=== PATIENT | female | born 1975 | race Caucasian/White ===

== ENCOUNTER → 2016-08-11 | Outpatient (CLI) | payer OTHER ==
--- NOTE | 2016-08-11 15:43 | REP ---
Right ankle series: Four views. History: Sprain. Findings: There is anterolateral swelling. Ankle mortise is intact. No fracture or subluxation is seen. Impression: Swelling noted. No fracture seen. Signed by Cayetano Penny MD 08/11/2016 04:45 P
== END ==
LOC: M WUC 13:44
PROVIDERS: ATTEND Physician Assistant
DX: S93.421A Sprain of deltoid ligament of right ankle, initial encounter (principal); W18.30XA Fall on same level, unspecified, initial encounter; Y92.009 Unspecified place in unspecified non-institutional (private) residence as the place of occurrence of the external cause

== ENCOUNTER → 2018-08-11 | Outpatient (CLI) | payer BC, OTHER ==
--- NOTE | 2018-08-11 17:14 | REP ---
Clinical: Pain. Technique: AP, lateral, bilateral oblique views. Findings: The carpal bones, surrounding osseous structures, soft tissues, and joint spaces are normal. There is no evidence for acute fracture or dislocation. No subcutaneous emphysema or radiodense foreign body. Impression: Normal wrist series. No acute fracture or dislocation Electronically Signed by Sonu Garay MD 08/11/2018 05:06 P
--- NOTE | 2018-08-11 17:15 | REP ---
Clinical: Pain Technique: AP, lateral, bilateral oblique views right hand . Findings: The osseous structures and joint spaces are intact and normal. There is no evidence for acute fracture or dislocation. Surrounding soft tissues are unremarkable. No subcutaneous emphysema or radiodense foreign body. Impression: Normal-appearing right hand series. No acute fracture or dislocation. Electronically Signed by Sonu Garay MD 08/11/2018 05:06 P
== END ==
LOC: M ADAMS 15:09
PROVIDERS: ATTEND Physician Assistant
DX: R20.2 Paresthesia of skin (principal); M25.541 Pain in joints of right hand; M25.531 Pain in right wrist

== ENCOUNTER → 2018-08-11 | Outpatient (REF) | payer OTHER ==
[2018-08-11 20:02] LABS: HEMOGLOBIN 14.3 g/dl (12.0-15.5); MEAN CORPUSCULAR HEMOGLOBIN 31.6 pg (27.0-33.0); MEAN CORPUSCULAR HGB CONC 32.5 g/dl (32.0-36.5); MEAN CORPUSCULAR VOLUME 97.1 fl (80.0-96.0); PLATELET COUNT, AUTOMATED 246 10^3/uL (150-450); RED BLOOD COUNT 4.53 10^6/uL (4.00-5.40); WHITE BLOOD COUNT 9.7 10^3/uL (4.0-10.0)
[2018-08-11 20:23] LABS: ERYTHROCYTE SEDIMENTATION RATE 4 mm/hr (0-20)
[2018-08-11 20:25] LABS: BLOOD UREA NITROGEN 12 MG/DL (7-18); C REACTIVE PROTEIN QUANTITATIV 0.35 MG/DL (0.00-0.30); CALCIUM LEVEL 9.2 MG/DL (8.5-10.1); CARBON DIOXIDE LEVEL 26 MEQ/L (21-32); CHLORIDE LEVEL 102 MEQ/L (98-107); CREATININE FOR GFR 0.54 MG/DL (0.55-1.30); FREE T4 0.94 NG/DL (0.76-1.46); GLOMERULAR FILTRATION RATE > 60.0 (>58); GLUCOSE, FASTING 66 MG/DL (70-100); POTASSIUM SERUM 4.3 MEQ/L (3.5-5.1); RHEUMATOID FACTOR QUANT < 10.0 IU/ML (<15.0); SODIUM LEVEL 136 MEQ/L (136-145); TOTAL 25(OH) VITAMIN D 14.6 NG/ML (30.0-100.0); VITAMIN B12 LEVEL 571 PG/ML
[2018-08-13 16:13] LABS: Lyme Disease IgG/IgM Antibodie <0.91 ISR (0.00-0.90); Lyme Disease IgM Ab Quantitati <0.80 index (0.00-0.79)
[2018-08-14 00:06] LABS: ANA (HEP2) Negative (.)
== END ==
LOC: M SFHCADAM 14:58
PROVIDERS: ATTEND Physician Assistant
DX: R20.2 Paresthesia of skin (principal); M25.542 Pain in joints of left hand; M25.541 Pain in joints of right hand; M25.531 Pain in right wrist; M25.532 Pain in left wrist; M79.672 Pain in left foot; M79.671 Pain in right foot

== ENCOUNTER 2019-07-18 07:10 | Emergency (ER) | payer BC, OTHER ==
[~2019-07-18] VITALS: Ht 152.4 cm; Wt 57.4 kg
[2019-07-18] MEDS ORDERED: PRED10TA2 (07:18)
[2019-07-18] MEDS ORDERED: BENA25CA4 PO (07:48)
[2019-07-18] MEDS ORDERED: diphenhydrAMINE INJ 50MG/ML VIAL (J1200) IV STA (08:08)
[2019-07-18] MEDS ORDERED: methylPREDNISolone INJ 125 MG/2 ML VIAL (J2930) IV ONE (08:15)
[2019-07-18] MEDS ORDERED: FAMOTIDINE INJ 20MG/2ML VIAL (S0028) IVP ONE (08:15)
[2019-07-18 08:36] LABS: BASO % 0.1 % (0.0-1.0); HEMATOCRIT 44.5 % (36.0-47.0); HEMOGLOBIN 14.5 g/dl (12.0-15.5); LYMPH # 1.1 10^3/uL (1.5-5.0); LYMPH % 7.2 % (24.0-44.0); MEAN CORPUSCULAR HEMOGLOBIN 31.5 pg (27.0-33.0); MEAN CORPUSCULAR HGB CONC 32.6 g/dl (32.0-36.5); MEAN CORPUSCULAR VOLUME 96.5 fl (80.0-96.0); MONO # 0.3 10^3/uL (0.0-0.8); MONO % 1.8 % (0.0-5.0); NEUTROPHILS # 13.4 10^3/uL (1.5-8.5); NEUTROPHILS % 90.2 % (36.0-66.0); PLATELET COUNT, AUTOMATED 302 10^3/uL (150-450); RED BLOOD COUNT 4.61 10^6/uL (4.00-5.40); WHITE BLOOD COUNT 14.9 10^3/uL (4.0-10.0)
[2019-07-18 08:46] LABS: BLOOD UREA NITROGEN 11 MG/DL (7-18); C REACTIVE PROTEIN QUANTITATIV < 0.30 MG/DL (0.00-0.30); CALCIUM LEVEL 9.1 MG/DL (8.5-10.1); CARBON DIOXIDE LEVEL 27 MEQ/L (21-32); CHLORIDE LEVEL 106 MEQ/L (98-107); GLOMERULAR FILTRATION RATE > 60.0 (>58); GLUCOSE, FASTING 156 MG/DL (70-100); POTASSIUM SERUM 4.1 MEQ/L (3.5-5.1); SODIUM LEVEL 139 MEQ/L (136-145)
[2019-07-18 08:50] LABS: HCG, SERUM QUALITATIVE NEGATIVE (NEGATIVE)
[2019-07-18] MEDS ORDERED: PRED20TA PO (10:14)
[2019-07-18] MEDS ORDERED: ALLE180T33 PO (10:14)
[2019-07-18] MEDS ORDERED: ALL10TAB29 PO (10:14)
[2019-07-18] MEDS ORDERED: HYDR-3363 PO (10:14)
[2019-07-18 10:42] VITALS: BP 122/78
[2019-07-18] MEDS ORDERED: PEPC1TAB5 PO (17:01)
[2019-07-19] MEDS ORDERED: ALLE180T33 PO (23:06)
[2019-07-19] MEDS ORDERED: PRED20TA PO (23:06)
[2019-07-19] MEDS ORDERED: HYDR-3363 PO (23:06)
[2019-07-19] MEDS ORDERED: BENA25CA4 PO (23:06)
[2019-07-19] MEDS ORDERED: PEPC1TAB5 PO (23:06)
[2019-07-19] MEDS ORDERED: CETI-14 PO (23:06)
== END 2019-07-18 10:43 | disposition home or self-care (01) ==
LOC: M ED 07:10
DX: T78.40XA Allergy, unspecified, initial encounter (principal); R21 Rash and other nonspecific skin eruption; F17.218 Nicotine dependence, cigarettes, with other nicotine-induced disorders
CPT/HCPCS: 80048; 84703; 85025; 86140; 96374; 96375; 99283; J1200; J2930

== ENCOUNTER 2019-07-18 14:35 | Emergency (ER) | payer BC, OTHER ==
[~2019-07-18] VITALS: Ht 152.4 cm; Wt 54.5 kg
[~2019-07-18 14:35] MED LIST: ALL10TAB29 PO; ALLE180T33 PO; BENA25CA4 PO; HYDR-3363 PO; PRED10TA2; PRED20TA PO
[2019-07-18] MEDS ORDERED: diphenhydrAMINE INJ 50MG/ML VIAL (J1200) IV ONE (16:30)
[2019-07-18] MEDS ORDERED: PEPC1TAB5 PO (17:01)
[2019-07-18 17:31] VITALS: BP 114/62
[2019-07-19] MEDS ORDERED: PEPC1TAB5 PO (23:06)
[2019-07-19] MEDS ORDERED: PRED20TA PO (23:06)
[2019-07-19] MEDS ORDERED: CETI-14 PO (23:06)
[2019-07-19] MEDS ORDERED: ALLE180T33 PO (23:06)
[2019-07-19] MEDS ORDERED: BENA25CA4 PO (23:06)
[2019-07-19] MEDS ORDERED: HYDR-3363 PO (23:06)
== END 2019-07-18 17:32 | disposition home or self-care (01) ==
LOC: M ED 14:35
DX: L29.9 Pruritus, unspecified (principal); L50.9 Urticaria, unspecified; F17.210 Nicotine dependence, cigarettes, uncomplicated; Z79.899 Other long term (current) drug therapy
CPT/HCPCS: 96374; 99283; J1200

== ENCOUNTER 2019-07-19 20:29 | Inpatient (IN) | payer BC, OTHER ==
[~2019-07-19] VITALS: Ht 152.4 cm; Wt 60.0 kg
[~2019-07-19 20:29] MED LIST changes: +PEPC1TAB5 PO
[2019-07-19] MEDS ORDERED: NS 1,000 ML IV ONE (22:15)
[2019-07-19] MEDS ORDERED: ALLE180T33 PO (23:06)
[2019-07-19] MEDS ORDERED: PEPC1TAB5 PO (23:06)
[2019-07-19] MEDS ORDERED: CETI-14 PO (23:06)
[2019-07-19] MEDS ORDERED: PRED20TA PO (23:06)
[2019-07-19] MEDS ORDERED: BENA25CA4 PO (23:06)
[2019-07-19] MEDS ORDERED: HYDR-3363 PO (23:06)
[2019-07-19 23:11] LABS: HEMATOCRIT 44.3 % (36.0-47.0); HEMOGLOBIN 14.1 g/dl (12.0-15.5); MEAN CORPUSCULAR HEMOGLOBIN 31.3 pg (27.0-33.0); MEAN CORPUSCULAR HGB CONC 31.8 g/dl (32.0-36.5); MEAN CORPUSCULAR VOLUME 98.2 fl (80.0-96.0); PLATELET COUNT, AUTOMATED 254 10^3/uL (150-450); RED BLOOD COUNT 4.51 10^6/uL (4.00-5.40)
[2019-07-19 23:13] LABS: WHITE BLOOD COUNT 13.8 10^3/uL (4.0-10.0)
--- NOTE | 2019-07-19 23:20 | HPEPDOC ---
[facility] Medical History & Physical Date of Admission Jul 19, 2019 Date of Service: Jul 19, 2019 Primary Care Physician: RYLAND PHOENIX PA-C Attending Physician: RAMÓN WATSON MD History and Physical CHIEF COMPLAINT: Itching and hives HISTORY OF PRESENT ILLNESS: is a 44-year-old female with no significant past medical history who presented to the emergency department with chief complaints of persistent pruritus and urticaria. 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 She initially had pruritus of her neck with urticaria that subsequently spread to both arms. She then presented to urgent care and was given Solu-Medrol before going home. The next morning she awoke with her "entire body" covered with hives and immediately presented to the emergency department at 6:30 AM. She was treated again with Solu-Medrol and IV Benadryl before being sent home with Clara, Zyrtec, and hydroxyzine. After a mild improvement, her symptoms became more intense and she returned to the ED around 2:30 PM. At this time, she was given another IV dose of Benadryl and discharged to continue with the home medications she received on her earlier presentation. She woke up this morning without any symptoms and had no issues until around 7 PM when she begin to experience lip swelling with neck urticaria and pruritus. She feels as though hydroxyzine helps with the pruritus in that exposure to warm water/showers seem to exacerbate her symptoms. The only time she had similar symptoms prior, was "many years ago" when she had bilateral hand pruritus after sleeping in a hotel bed. When she presented to the ED this evening, in addition to the lip swelling and neck symptoms, she endorsed hoarseness and soreness of her anterior chest when pressure is applied. At the time of examination, though, she feels her symptoms have moderately improved since presentation. Labs in the ED showed leukocytosis with an elevation of atypical lymphocytes, and no significant abnormalities on CMP. Patient denies any known drug allergies. She does not take any outpatient medications on a regular basis and denies taking anything recently other than what she's been given since Wednesday. She denies any recent extensive travel or significant changes in her diet. She denies using any new soaps, shampoos, deodorants, detergents, perfumes, etc. She does have 4 dogs at home. She has been exposed recently to a granddaughter with a cold and a grandson with RSV. In terms of recent illnesses, she reports suffering bronchitis around New Year's. REVIEW OF SYSTEMS: CONSTITUTIONAL: Denies fever, chills, night sweats, or recent unintentional change in weight HEENT: Endorses hoarseness, pruritus and urticaria of neck, and lip swelling that has improved since presentation; denies rhinorrhea or sore throat CARDIOVASCULAR: Endorses chest pain with applied pressure, but none without; as well as palpitations when taking prednisone. RESPIRATORY: Denies shortness of breath, pleuritic chest pain, or cough. GASTROINTESTINAL: Denies abdominal pain, feeling nauseated, vomiting, constipation, or diarrhea. GENITOURINARY: Denies dysuria or hematuria. SKIN: Endorses pruritus and urticaria of neck, b/l UE & LE, and abdomen over pa st 2 days. MUSCULOSKELETAL: Denies any muscle pain or joint pain. NEUROLOGICAL: Denies headache, dizziness, lightheadedness, or syncope PAST MEDICAL/SURGICAL HISTORY: No significant past medical history. Tubal ligation, 2006. SOCIAL HISTORY: , mother of 5 children with 2 grandchildren. She has 4 pet dogs at home. 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 She smokes roughly 1/2 ppd of cigarettes and has done so for the past 24 years. She drinks out. Call socially, averaging about 2-3 drinks per month. She denies any current or former illegal drug use. FAMILY HISTORY: Father lung cancer Breast cancer, diabetes mellitus 2, and unspecified heart disease are present throughout her family. ALLERGIES: Please see below. HOME MEDICATIONS: Please see below. PHYSICAL EXAMINATION: VITAL SIGNS: Temperature 98.3, pulse, 64, respiratory rate 14, blood pressure 147/91, pulse oximetry, 99 % on room air. GENERAL APPEARANCE: Pleasant female lying in bed in no acute distress. Alert and oriented 3. HEENT: Normocephalic, atraumatic. Anicteric, noninjected sclerae. No lip angioedema is appreciated. No pharyngeal erythema or exudate. Mucous membranes appear to be somewhat dry. There are scattered circumferential erythematous macules roughly 0.5 cm in diameter over the posterior aspect of the neck. CARDIOVASCULAR: Bradycardic rate and regular rhythm. S1, S2 auscultated. No murmurs or rubs are appreciated. LUNGS: Clear to auscultation bilaterally with no wheezes, crackles or rhonchi appreciated. Breathing on room air. Speaking in full sentences. No accessory muscle use. CHEST: Moderate erythema on the superior aspect of the chest that elicits mild pain when palpated, but blanches with pressure. ABDOMEN: Soft, nontender, nondistended. There is an approximate 1 cm long, erythematous macule on the left lateral aspect of the umbilicus. Normoactive bowel sounds present. EXTREMITIES: Scattered areas of erythematous macules roughly 0.5 cm in diameter over her anterior forearms bilaterally. There is no active bleeding, excoriation, induration, or discharge of the forearms. No lower extremity edema, clubbing or cyanosis. 2+ radial and posterior tibial pulses bilaterally. NEUROLOGICAL: Awake, alert and oriented 3. No focal neurological deficits appreciated. Responding properly to questions or commands. PSYCHIATRIC: Mood and affect appear appropriate LABORATORY DATA: Please see below. IMAGING: None MICROBIOLOGY: Please see below. ASSESSMENT & PLAN: This is a 44-year-old female who presents with 3 days of persistent pruritus and urticaria despite being seen 3 previous times (1x urgent care, 2x ED) and receiving IV Solu-Medrol, PO prednisone, Clara, hydroxyzine, Benadryl, and Zyrtec. She was admitted for observation with the chief diagnosis of idiopathic pruritic urticaria. #Acute idiopathic urticaria -She had swelling of her upper lip and may also possibly have early angioedema -Patient had no obvious triggers (no recent antibiotics, NSAIDs, bites, food reactions) -Exposure to warm water/shower exacerbates her symptoms. This potentially could be due to polycythemia. Patient is a smoker and potentially could have acquired polycythemia or polycythemia rubra vera. -No red flag urticarial symptoms in terms of burning or pain -No respiratory decompensation or hypotension -ESR and CRP normal -Antihistamines, PO steroids, Clara, topical Benadryl all on board -Atypical lymphocytes elevated; this potentially could be a reactive process or neoplastic. Peripheral smear with pathologist review has been ordered. -Elevated white count (13.8), potentially secondary to recent steroid use -C1 inhibitor results are pending, but normal C4 effectively rules out hereditary angioedema -She will need to be referred to Allergy/Immunology on an out pt basis #DVT prophylaxis: Teds and sequentials ordered. Dispo: home after more than 2 midnight's stay Vital Signs Vital Signs Date Time Temp Pulse Resp B/P (MAP) Pulse Ox O2 Delivery O2 Flow Rate FiO2 07/19/19 23:01 147/91 (109) 07/19/19 23:00 64 14 99 Room Air 07/19/19 20:29 98.3 Laboratory Data Labs 24H Laboratory Tests 2 07/19/19 22:46: Lymphocytes # (Auto) , Nucleated Red Blood Cells % (auto) 0.0 CBC/BMP Laboratory Tests 07/19/19 22:46 Home Medications Scheduled Cetirizine HCl (Cetirizine HCl) 10 Mg Tablet, 10 MG PO QHS Famotidine (Pepcid) 20 Mg Tablet, 20 MG PO BID Fexofenadine HCl (Clara Allergy) 180 Mg Tablet, 180 MG PO DAILY Prednisone (Prednisone) 20 Mg Tablet, 20 MG PO ASDIRECTED 60MG x 2 more days, 40MG x 3 days, 20MG x 3 days, then take 1/2 tab (10mg) x 4 days, then stop Scheduled PRN Diphenhydramine HCl (Benadryl) 25 Mg Capsule, 50 MG PO Q6H PRN for ITCHING/SWELLING Hydroxyzine HCl (Hydroxyzine HCl) 25 Mg Tablet, 25 MG PO TID PRN for ITCHING/SWELLING Allergies Coded Allergies: No Known Allergies (Verified , 12/11/04) A-FIB/CHADSVASC A-FIB History Current/History of A-Fib/PAF?: No Current PO Anticoag Therapy: No GME ATTESTATION GME ATTESTATION My faculty preceptor for this patient encounter was physically present during the encounter and was fully available. All aspects of the patient interview, examination, medical decision making process, and medical care plan development were reviewed and approved by the faculty preceptor. The faculty preceptor is aware and concurs with the plan as stated in the body of this note and will attest to such by his/her cosignature. ATTENDING NOTE I examined the patient at 10:55 PM reviewed and edited the note and agree with the findings as documented. Ms. Kuo 44 F admitted for evaluation of acute urticaria of unclear cause. Plan: Continue cetirizine, follow-up CBC with differential and peripheral smear review by Pathologist, TSH, LFTs and ANTONIETTA. Shell need outpatient referral to an allergy/[employer] ALINE KAPADIA D.O. Jul 19, 2019 23:20 RAMÓN WATSON MD Jul 19, 2019 23:46
[2019-07-19 23:29] LABS: ATYPICAL LYMPH 13 % (0-5); LYMPHOCYTES 35 % (16-44); MONOCYTES 4 % (0-5); NEUTROPHILS 48 % (28-66)
[2019-07-19 23:31] LABS: PLATELET ESTIMATE NORMAL (NORMAL)
[2019-07-19 23:41] LABS: ALBUMIN 4.3 GM/DL (3.2-5.2); ALT/SGPT 29 U/L (12-78); BILIRUBIN,DIRECT < 0.1 MG/DL (0.0-0.2); BILIRUBIN,TOTAL 0.5 MG/DL (0.2-1.0); BLOOD UREA NITROGEN 14 MG/DL (7-18); C REACTIVE PROTEIN QUANTITATIV < 0.30 MG/DL (0.00-0.30); CALCIUM LEVEL 9.1 MG/DL (8.5-10.1); CARBON DIOXIDE LEVEL 28 MEQ/L (21-32); CHLORIDE LEVEL 106 MEQ/L (98-107); COMPLEMENT C4 22 MG/DL (10-40); CREATININE FOR GFR 0.65 MG/DL (0.55-1.30); GLOMERULAR FILTRATION RATE > 60.0 (>58); GLUCOSE, FASTING 80 MG/DL (70-100); POTASSIUM SERUM 4.1 MEQ/L (3.5-5.1); SODIUM LEVEL 140 MEQ/L (136-145); TOTAL PROTEIN 7.6 GM/DL (6.4-8.2)
[2019-07-19 23:57] LABS: ERYTHROCYTE SEDIMENTATION RATE 3 mm/hr (0-20)
[2019-07-20] VITALS (17 sets, daily range): BP systolic 109–143; BP diastolic 61–82; O2SAT 96–98
[2019-07-20] MEDS ORDERED: hydrOXYzine 25 MG TAB PO PRN (01:15)
[2019-07-20] MEDS ORDERED: predniSONE 20 MG TAB PO SCH ×2 (01:15→09:00)
[2019-07-20] MEDS: diphenhydrAMINE 50 MG CAP PO PRN (01:45)
[2019-07-20] MEDS ORDERED: diphenhydrAMINE CREAM 30GM TOP PRN (06:30)
[2019-07-20 06:46] LABS: HEMATOCRIT 38.3 % (36.0-47.0); MEAN CORPUSCULAR HEMOGLOBIN 31.3 pg (27.0-33.0); MEAN CORPUSCULAR HGB CONC 31.6 g/dl (32.0-36.5); MEAN CORPUSCULAR VOLUME 99.2 fl (80.0-96.0); PLATELET COUNT, AUTOMATED 216 10^3/uL (150-450); RED BLOOD COUNT 3.86 10^6/uL (4.00-5.40)
[2019-07-20 06:51] LABS: WHITE BLOOD COUNT 10.3 10^3/uL (4.0-10.0)
[2019-07-20 06:52] LABS: HEMOGLOBIN 12.1 g/dl (12.0-15.5)
[2019-07-20 07:06] LABS: ATYPICAL LYMPH 6 % (0-5); LYMPHOCYTES 46 % (16-44); NEUTROPHILS 48 % (28-66)
[2019-07-20 07:07] LABS: PLATELET ESTIMATE NORMAL (NORMAL)
[2019-07-20 07:19] LABS: ALBUMIN 3.4 GM/DL (3.2-5.2); ALT/SGPT 26 U/L (12-78); BILIRUBIN,TOTAL 0.5 MG/DL (0.2-1.0); BLOOD UREA NITROGEN 14 MG/DL (7-18); CALCIUM LEVEL 8.1 MG/DL (8.5-10.1); CARBON DIOXIDE LEVEL 26 MEQ/L (21-32); CHLORIDE LEVEL 109 MEQ/L (98-107); CREATININE FOR GFR 0.71 MG/DL (0.55-1.30); GLOMERULAR FILTRATION RATE > 60.0 (>58); GLUCOSE, FASTING 84 MG/DL (70-100); POTASSIUM SERUM 3.4 MEQ/L (3.5-5.1); SODIUM LEVEL 142 MEQ/L (136-145); TOTAL PROTEIN 6.1 GM/DL (6.4-8.2)
--- NOTE | 2019-07-20 07:53 | IPNPDOC ---
Subjective Date Seen The patient was seen on 07/20/19. Subjective Chief Complaint/HPI urticaria Events since last encounter admitted for recurrent episodes of hives with recent swelling of face, neck and lips. Rash also feels painful on chest. Denies SOB. Denies new contacts, soaps. lotions, workplace exposures, foods or medications other than what has been prescribed this week. Has a sister that has lupus, denies other FH of allergies, autoimmune disorders. Skin: Reports: Rash, Lesions, Itching; Denies: Breakdown Pulmonary: Denies: Dyspnea, Cough Cardiovascular: Reports: Chest Pain; Denies: Palpitations, Orthopnea, Paroxysmal Noc. Dyspnea, Lt Headedness Gastrointestinal: Denies: Nausea, Vomiting, Abdominal Pain, Diarrhea, Constipation Genitourinary: Denies: Dysuria, Frequency, Incontinence, Retention Musculoskeletal: Denies: Neck Pain, Back Pain, Joint Pain, Muscle Pain, Spasms Neurological: Denies: Weakness, Numbness, Change in speech, Confusion Psych: Reports: Mood Normal; Denies: Depression, Memory Issues Objective Physical Examination General Exam: Positive: Alert, No Acute Distress Eye Exam: Positive: PERRLA, EOMI, Other Eye Symptoms (eyes are swollen) ENT Exam: Positive: Mucous membr. moist/pink, Pharynx Normal, Other ENT (facial swelling noted) Neck Exam: Positive: Supple; Negative: JVD, thyromegaly Chest Exam: Positive: Wheezing Heart Exam: Positive: Rate Normal, Regular Rhythm, Normal S1, Normal S2; Negative: Murmurs, Rubs Abdomen Exam: Positive: Normal bowel sounds, Soft; Negative: Tenderness, Hepatospenomegaly Skin Exam: Positive: Rash (urticarial rash to trunk and extremties, diffuse in arrangement, warm to touch), Pruritus Neuro Exam: Positive: Normal Speech Psych Exam: Positive: Oriented x 3 Assessment /Plan Problems (1) Idiopathic urticaria Status: Acute Problem Text: eval ANTONIETTA< ESR, CRP, TSH. Solumedrol 80 mg IV q 8 hrs. benadryl prn itching. telemetry and continuous oxygen monitoring due to chest pain and facial swelling. Plan/VTE VTE Prophylaxis Ordered?: No VTE Exclusion Mechanical Proph: Low Risk for VTE VS, I&O, 24H, Fishbone Vital Signs/I&O Vital Signs Date Time Temp Pulse Resp B/P (MAP) Pulse Ox O2 Delivery O2 Flow Rate FiO2 2/6/20 07:38 98.1 60 18 109/61 (77) 98 Room Air I&O- Last 24 Hours up to 6 AM 07/20/19 06:00 Intake Total 1000 ml Output Total 300 ml Balance 700 ml Laboratory Data 24H LABS Laboratory Tests 2 07/19/19 22:46: Lymphocytes # (Auto) , Nucleated Red Blood Cells % (auto) 0.0, Neutrophils 48, Lymphocytes (Manual) 35, Monocytes (Manual) 4, Atypical Lymphocytes 13H, Basophilic Stippling 1+, Platelet Estimate NORMAL, Erythrocyte Sedimentation Rate 3, Anion Gap 6L, Glomerular Filtration Rate > 60.0, Calcium Level 9.1, Total Bilirubin 0.5, Direct Bilirubin < 0.1, Aspartate Amino Transf (AST/SGOT) 15, Alanine Aminotransferase (ALT/SGPT) 29, Alkaline Phosphatase 96, C-Reactive Protein, Quantitative < 0.30, Total Protein 7.6, Albumin 4.3, Albumin/Globulin Ratio 1.30, Complement C4 22 07/20/19 06:34: Lymphocytes # (Auto) , Nucleated Red Blood Cells % (auto) 0.0, Neutrophils 48, Lymphocytes (Manual) 46H, Atypical Lymphocytes 6H, Platelet Estimate NORMAL, Anion Gap 7L, Glomerular Filtration Rate > 60.0, Calcium Level 8.1L, Total Bilirubin 0.5, Aspartate Amino Transf (AST/SGOT) 11, Alanine Aminotransferase (ALT/SGPT) 26, Alkaline Phosphatase 72, Total Protein 6.1L, Albumin 3.4#, Albumin/Globulin Ratio 1.26, Red Blood Cell Morphology NORMAL, Differential Sl jocelyne Review Report, Peripheral Blood Smear Path Consult PERIPHERAL SMEAR CBC/BMP Laboratory Tests 07/19/19 22:46 07/20/19 06:34 Lawanda Barreto BAKERY ASSOCIATE Jul 20, 2019 07:53
[2019-07-20] MEDS ORDERED: POTASSIUM CHLORIDE 10 MEQ SR TABLET PO ONE (08:00)
[2019-07-20] MEDS: FAMOTIDINE 20 MG TAB PO SCH ×2 (08:25→21:06)
[2019-07-20] MEDS: FEXOFENADINE 60 MG TAB PO SCH (08:25)
[2019-07-20] MEDS: methylPREDNISolone INJ 125 MG/2 ML VIAL (J2930) IV SCH ×2 (08:26→15:46)
[2019-07-20 09:19] LABS: C REACTIVE PROTEIN QUANTITATIV < 0.30 MG/DL (0.00-0.30); RHEUMATOID FACTOR QUANT < 10.0 IU/ML (<15.0)
[2019-07-20] MEDS: CETIRIZINE (ZyrTEC) 10 MG TAB PO SCH (21:06)
[2019-07-20] MEDS: NICOTINE POLACRILEX 2 MG GUM PO PRN (21:07)
[2019-07-20] MEDS: diphenhydrAMINE CREAM 30GM TOP PRN (21:09)
[2019-07-21] VITALS (14 sets, daily range): BP systolic 115–138; BP diastolic 57–80; O2SAT 95–97
[2019-07-21] MEDS: methylPREDNISolone INJ 125 MG/2 ML VIAL (J2930) IV SCH ×3 (00:31→20:23)
[2019-07-21] MEDS: FEXOFENADINE 60 MG TAB PO SCH (08:03)
[2019-07-21] MEDS: FAMOTIDINE 20 MG TAB PO SCH ×2 (08:03→20:23)
[2019-07-21] MEDS: NICOTINE POLACRILEX 2 MG GUM PO PRN ×3 (08:03→23:15)
--- NOTE | 2019-07-21 11:37 | IPNPDOC ---
Subjective Date Seen The patient was seen on 07/21/19. Subjective Chief Complaint/HPI Pt this morning states that she is feeling a lot better but is nervous about the hives coming back, she states that although she doesn't have any spots that are noticable she feels tingling, a little itchy gamaliel in her hands. DEnies new products or exposures.m Son had GI illness about 2 weeks ago. Treated for brochitis 3 weeks ago by Daniel CALHOUN, treated with Doxy and Pred, stopped Doxy after 7 days because her tongue felt funny while taking it, within a day or too of stopping this resolved. 3 years ago while out of town for a had hives on her hands and forearms, lasted several days, took Benadryl, wasn't seen or treated for them, haven't recurred until now. Denies any SOB, cough, difficulty swallowing. General: Denies: Fatigue Constitutional: Denies: Chills, Fever Skin: Denies: Rash Pulmonary: Denies: Dyspnea, Cough Cardiovascular: Denies: Chest Pain, Palpitations Gastrointestinal: Denies: Nausea, Vomiting Neurological: Denies: Weakness Psych: Reports: Mood Normal Objective Physical Examination General Exam: Positive: Alert, No Acute Distress ENT Exam: Positive: Mucous membr. moist/pink, Pharynx Normal Neck Exam: Positive: Supple; Negative: JVD, thyromegaly Chest Exam: Positive: Wheezing Heart Exam: Positive: Rate Normal, Regular Rhythm, Normal S1, Normal S2; Negative: Murmurs, Rubs Abdomen Exam: Positive: Normal bowel sounds, Soft; Negative: Tenderness, Hepatospenomegaly Skin Exam: Negative: Rash, Pruritus Neuro Exam: Positive: Normal Speech Psych Exam: Positive: Mood NL, Oriented x 3 Assessment /Plan Problems (1) Idiopathic urticaria Status: Acute Problem Text: 07/21 ESR, CRP normal, TSH mildly elevated at 4.4, RF < 10, await remainder of labs. Will reduce SM from 80 TID TO 60 mg BID, Cont with benadryl, tisha, hydroxyzine, pepcid. 07/20 eval ANTONIETTA< ESR, CRP, TSH. Solumedrol 80 mg IV q 8 hrs. benadryl prn itching. telemetry and continuous oxygen monitoring due to chest pain and facial swelling. Plan/VTE VTE Prophylaxis Ordered?: No VTE Exclusion Mechanical Proph: Low Risk for VTE VS, I&O, 24H, Fishbone Vital Signs/I&O Vital Signs Date Time Temp Pulse Resp B/P (MAP) Pulse Ox O2 Delivery O2 Flow Rate FiO2 07/21/19 08:00 97 Room Air 07/21/19 07:59 98.9 52 18 126/65 (85) 07/20/19 17:00 0.0 I&O- Last 24 Hours up to 6 AM 07/21/19 06:00 Intake Total 660 ml Output Total 1400 ml Balance -740 ml JAMSHID LAST PA-C Jul 21, 2019 11:37
[2019-07-21] MEDS ORDERED: SLF 3 ML SYR IV PRN (11:45)
[2019-07-21] MEDS: SLF 3 ML SYR IV SCH ×2 (13:01→20:24)
[2019-07-21 14:09] LABS: ANTINUCLEAR ANTIBODIES DIRECT Negative (Negative)
[2019-07-21] MEDS ORDERED: PINK BISMUTH SUSP 524MG/30ML ORAL SYRINGE PO PRN (16:45)
[2019-07-21] MEDS: CETIRIZINE (ZyrTEC) 10 MG TAB PO SCH (20:23)
[2019-07-22 00:07] LABS: ANA (HEP2) Negative (.)
[2019-07-22] MEDS: SLF 3 ML SYR IV SCH ×3 (05:24→22:45)
[2019-07-22 06:00] VITALS: BP 123/66
[2019-07-22] MEDS: FEXOFENADINE 60 MG TAB PO SCH (08:41)
[2019-07-22] MEDS: FAMOTIDINE 20 MG TAB PO SCH ×2 (08:41→20:36)
[2019-07-22] MEDS: methylPREDNISolone INJ 125 MG/2 ML VIAL (J2930) IV SCH (08:42)
[2019-07-22] MEDS: NICOTINE POLACRILEX 2 MG GUM PO PRN ×3 (08:51→20:36)
[2019-07-22] MEDS ORDERED: predniSONE 20 MG TAB PO SCH (09:00)
[2019-07-22 14:00] VITALS: BP 124/69
[2019-07-22] MEDS ORDERED: predniSONE 20 MG TAB PO ONE (20:15)
[2019-07-22] MEDS: CETIRIZINE (ZyrTEC) 10 MG TAB PO SCH (20:36)
[2019-07-22] MEDS: diphenhydrAMINE 50 MG CAP PO PRN (20:40)
[2019-07-22] MEDS: diphenhydrAMINE CREAM 30GM TOP PRN (21:46)
[2019-07-22 22:00] VITALS: BP 134/74
--- NOTE | 2019-07-22 22:50 | IPNPDOC ---
Subjective Date Seen The patient was seen on 07/22/19. Subjective Chief Complaint/HPI Ms. Johnson reports that she feels entirely normal today and she is wondering if she can go home. She is nervous about going home, because she's had multiple re-flares of her urticaria. General: Reports: Normal Appetite Constitutional: Denies: Chills, Fever ENT: Denies: Sore Throat, Other Symptoms (hoarse voice) Skin: Denies: Rash, Lesions, Itching Pulmonary: Denies: Cough Cardiovascular: Denies: Chest Pain Psych: Reports: Mood Normal Objective Physical Examination General Exam: Positive: Alert, Cooperative, No Acute Distress (sitting in her bed watching television when I enter the room) Eye Exam: Positive: Conjunctiva & lids normal; Negative: Sclera icteric ENT Exam: Positive: Mucous membr. moist/pink, Pharynx Normal, Tongue Midline; Negative: Pharyngeal Edema Neck Exam: Positive: Supple; Negative: Lymphadenopathy Chest Exam: Positive: Clear to auscultation, Normal air movement Heart Exam: Positive: Rate Normal, Regular Rhythm, Normal S1, Normal S2; Negative: Murmurs, Rubs Abdomen Exam: Positive: Normal bowel sounds, Soft; Negative: Tenderness, Hepatospenomegaly Extremity Exam: Negative: Edema Skin Exam: Negative: Rash, Pruritus Neuro Exam: Positive: Normal Speech Psych Exam: Positive: Mood NL, Oriented x 3 Assessment /Plan Problems (1) Idiopathic urticaria Status: Acute Problem Text: 07/22 - changing her to 60 mg of oral prednisone. She wishes to start this in the evening in order to facilitate going home tomorrow if it is able to keep her urticaria under control. C1 esterase is still pending. 07/21 ESR, CRP normal, TSH mildly elevated at 4.4, RF < 10, await remainder of labs. Will reduce SM from 80 TID TO 60 mg BID, Cont with benadryl, tisha, hydroxyzine, pepcid. 07/20 eval ANTONIETTA< ESR, CRP, TSH. Solumedrol 80 mg IV q 8 hrs. benadryl prn itching. telemetry and continuous oxygen monitoring due to chest pain and facial swelling. Plan/VTE VTE Prophylaxis Ordered?: No VTE Exclusion Mechanical Proph: Low Risk for VTE Plan Medications: Change to PO Anticipated Discharge: Home VS, I&O, 24H, Fishbone Vital Signs/I&O Vital Signs Date Time Temp Pulse Resp B/P (MAP) Pulse Ox O2 Delivery O2 Flow Rate FiO2 07/22/19 14:00 98.8 60 20 124/69 (87) 97 Room Air 07/20/19 17:00 0.0 I&O- Last 24 Hours up to 6 AM 07/22/19 06:00 Intake Total 1260 ml Output Total 750 ml Balance 510 ml Terrence Lan MD Jul 22, 2019 10:50 pm
[2019-07-23] MEDS: diphenhydrAMINE CREAM 30GM TOP PRN ×2 (03:54→10:55)
[2019-07-23] MEDS: SLF 3 ML SYR IV SCH ×2 (03:55→14:00)
[2019-07-23 06:00] VITALS: BP 120/70
[2019-07-23] MEDS: diphenhydrAMINE 50 MG CAP PO PRN (06:22)
[2019-07-23 07:02] LABS: HEMATOCRIT 38.6 % (36.0-47.0); HEMOGLOBIN 12.7 g/dl (12.0-15.5); MEAN CORPUSCULAR HEMOGLOBIN 31.5 pg (27.0-33.0); MEAN CORPUSCULAR HGB CONC 32.9 g/dl (32.0-36.5); MEAN CORPUSCULAR VOLUME 95.8 fl (80.0-96.0); PLATELET COUNT, AUTOMATED 241 10^3/uL (150-450); RED BLOOD COUNT 4.03 10^6/uL (4.00-5.40); WHITE BLOOD COUNT 14.1 10^3/uL (4.0-10.0)
[2019-07-23 07:28] LABS: BLOOD UREA NITROGEN 16 MG/DL (7-18); CALCIUM LEVEL 8.7 MG/DL (8.5-10.1); CARBON DIOXIDE LEVEL 29 MEQ/L (21-32); CHLORIDE LEVEL 105 MEQ/L (98-107); CREATININE FOR GFR 0.81 MG/DL (0.55-1.30); GLOMERULAR FILTRATION RATE > 60.0 (>58); GLUCOSE, FASTING 179 MG/DL (70-100); SODIUM LEVEL 140 MEQ/L (136-145)
[2019-07-23] MEDS: NICOTINE POLACRILEX 2 MG GUM PO PRN (07:28)
[2019-07-23] MEDS: FEXOFENADINE 60 MG TAB PO SCH (08:11)
[2019-07-23] MEDS: FAMOTIDINE 20 MG TAB PO SCH (08:11)
--- NOTE | 2019-07-23 11:18 | DS.PDOC ---
Discharge Summary General Date of Admission Jul 21, 2019 at 12:43 Date of Discharge 07/23/2019 Primary Care Physician: Manuel Mccauley MD Attending Physician: Terrence Lan MD Discharge Summary PROCEDURES PERFORMED DURING STAY: [None]. ADMITTING DIAGNOSES: 1. . DISCHARGE DIAGNOSES: 1. . COMPLICATIONS/CHIEF COMPLAINT: Allergic Reaction. HISTORY OF PRESENT ILLNESS: . HOSPITAL COURSE: . DISCHARGE MEDICATIONS: Please see below. ALLERGIES: Please see below. PHYSICAL EXAMINATION ON DISCHARGE: VITAL SIGNS: Please see below. GENERAL: HEENT: NECK: CARDIOVASCULAR EXAMINATION: RESPIRATORY EXAMINATION: ABDOMINAL EXAMINATION: EXTREMITIES: SKIN: NEUROLOGICAL EXAMINATION: PSYCHIATRIC EXAMINATION: LABORATORY DATA: Please see below. IMAGING: PROGNOSIS: ACTIVITY: [As tolerated]. DIET: DISCHARGE PLAN: DISPOSITION: . DISCHARGE INSTRUCTIONS: 1. . ITEMS TO FOLLOWUP ON ON OUTPATIENT: 1. . DISCHARGE CONDITION: [Stable]. TIME SPENT ON DISCHARGE: Greater than minutes. Vital Signs/I&Os Vital Signs Date Time Temp Pulse Resp B/P (MAP) Pulse Ox O2 Delivery O2 Flow Rate FiO2 07/23/19 06:00 98.1 53 20 120/70 (87) 97 Room Air 07/20/19 17:00 0.0 I&O- Last 24 Hours up to 6 AM 07/23/19 06:00 Intake Total 720 ml Output Total 1270 ml Balance -550 ml Laboratory Data Labs 24H Laboratory Tests 2 07/23/19 06:28: Nucleated Red Blood Cells % (auto) 0.0, Anion Gap 6L, Glomerular Filtration Rate > 60.0, Calcium Level 8.7 CBC/BMP Laboratory Tests 07/23/19 06:28 Discharge Medications Scheduled Cetirizine HCl (Cetirizine HCl) 10 Mg Tablet, 10 MG PO QHS, (Reported) Famotidine (Pepcid) 20 Mg Tablet, 20 MG PO BID, (Reported) Fexofenadine HCl (Clara Allergy) 180 Mg Tablet, 180 MG PO DAILY, (Reported) Prednisone (Prednisone) 20 Mg Tablet, 20 MG PO ASDIRECTED, (Reported) 60MG FOR DAYS 1-3, 40MG FOR DAYS 4-7, 20MG FOR DAYS 8-10: LAST DOSE WAS DAY 1 OF PRESCRIPTION Scheduled PRN Diphenhydramine HCl (Benadryl) 25 Mg Capsule, 50 MG PO Q6H PRN for ITCHING/SWELLING, (Reported) Hydroxyzine HCl (Hydroxyzine HCl) 25 Mg Tablet, 25 MG PO TID PRN for ITCHING/SWELLING, (Reported) Allergies Coded Allergies: No Known Allergies (Verified , 12/11/04) Terrence Lan MD Jul 23, 2019 11:18
[2019-07-23] MEDS ORDERED: PRED20TA PO (11:28)
[2019-07-26] MEDS ORDERED: predniSONE 20 MG TAB PO SCH (09:00)
== END 2019-07-23 13:27 | disposition home or self-care (01) | DRG 385 ==
LOC: M ED 20:29 → M ED INP 20:30 → ENRESERVTM 23:40 → ENRESERVDT 23:40 → M PCU 07-20 00:15 → OBSVTOIN 07-21 12:43 → INTOOBSV 07-21 12:43 → M MSPAV 07-21 18:32
PROVIDERS: ADMIT Internal Medicine; ATTEND Family Medicine
DX: L50.1 Idiopathic urticaria (principal); F17.210 Nicotine dependence, cigarettes, uncomplicated; Z79.899 Other long term (current) drug therapy

== ENCOUNTER → 2019-08-03 | Outpatient (REF) | payer OTHER ==
[~2019-08-03] MED LIST changes: +CETI-14 PO
[2019-08-04 14:07] LABS: Lyme Disease IgG/IgM Antibodie <0.91 ISR (0.00-0.90); Lyme Disease IgM Ab Quantitati <0.80 index (0.00-0.79)
== END ==
LOC: M SFHCADAM 09:41
PROVIDERS: ATTEND Family Medicine
DX: M25.50 Pain in unspecified joint (principal)

== ENCOUNTER → 2020-07-26 | Outpatient (REF) | payer OTHER ==
[~2020-07-26] MED LIST changes: -ALL10TAB29 PO; +CETI-24 PO
[2020-07-26 12:46] LABS: BASO % 0.4 % (0.0-1.0); EOS # 0.2 10^3/uL (0.0-0.5); EOS % 2.6 % (0.0-3.0); HEMATOCRIT 44.9 % (36.0-47.0); HEMOGLOBIN 14.4 g/dl (12.0-15.5); LYMPH # 2.6 10^3/uL (1.5-5.0); LYMPH % 30.1 % (24.0-44.0); MEAN CORPUSCULAR HEMOGLOBIN 31.4 pg (27.0-33.0); MEAN CORPUSCULAR HGB CONC 32.1 g/dl (32.0-36.5); MONO # 0.7 10^3/uL (0.0-0.8); MONO % 8.1 % (2.0-8.0); NEUTROPHILS % 58.4 % (36.0-66.0); PLATELET COUNT, AUTOMATED 231 10^3/uL (150-450); RED BLOOD COUNT 4.58 10^6/uL (4.00-5.40); WHITE BLOOD COUNT 8.6 10^3/uL (4.0-10.0)
[2020-07-26 13:27] LABS: ALT/SGPT 47 U/L (12-78); AMYLASE 54 U/L (25-115); BILIRUBIN,TOTAL 0.4 MG/DL (0.2-1.0); BLOOD UREA NITROGEN 10 MG/DL (7-18); CALCIUM LEVEL 8.8 MG/DL (8.5-10.1); CARBON DIOXIDE LEVEL 26 MEQ/L (21-32); CHLORIDE LEVEL 103 MEQ/L (98-107); GLOMERULAR FILTRATION RATE > 60.0 (>58); GLUCOSE, FASTING 73 MG/DL (70-100); LIPASE 648 U/L (73-393); POTASSIUM SERUM 4.1 MEQ/L (3.5-5.1); SODIUM LEVEL 138 MEQ/L (136-145); TOTAL PROTEIN 7.2 GM/DL (6.4-8.2)
== END ==
LOC: M SFHCADAM 10:17
PROVIDERS: ATTEND Physician Assistant
DX: R10.13 Epigastric pain (principal)

== ENCOUNTER → 2020-08-06 | Outpatient (CLI) | payer BC, OTHER ==
[~2020-08-06] MED LIST changes: +GASTROGRAFIN SOLUTION 30ML (Q9963) As Ordered ONE; +ISOVUE-370 76% 100ML VIAL As Ordered ONE
--- NOTE | 2020-08-06 18:20 | REP ---
INDICATION: EPIGASTRIC PAIN, ELEVATED LIPASE. Right upper quadrant abdominal tenderness without rebound tenderness. COMPARISON: None. TECHNIQUE: Helical scanning is acquired and 3 mm axial images re-formatted. Coronal and sagittal MPR images are generated. The CT contrast enhancement dose is 100 mL of intravenous Isovue 370. FINDINGS: Preliminary digital wet wash assembler radiograph demonstrates tubal ligation clamps and a normal bowel gas pattern in the abdomen and pelvis. Axial CT images demonstrate that the lung bases are clear. There is no evidence of pleural effusion. There is mild diffuse fatty infiltration of the liver. No focal liver lesion is seen. The liver is not enlarged. The spleen is unremarkable. No abnormality is noted in the pancreas. Normal adrenal glands are observed. No abnormality is seen in the gallbladder. The kidneys enhance symmetrically and are morphologically intact except for a cyst in the lower pole the right kidney which measures 1.5 cm in greatest diameter. Uterus is anteverted and mildly enlarged measuring 9.7 x 4.7 by 6.5 cm. No ovarian mass or cyst is seen. No bowel obstructive lesion is seen. Small and large intestinal bowel loops are unremarkable. No abdominal wall defect is seen. No bony destructive lesion is appreciated. The appendix is not well seen but there are no inflammatory changes or other abnormality to suggest appendiceal or cecal disease. IMPRESSION: Mild diffuse fatty infiltration of the liver. Tubal ligation clamps in the pelvis. Small cyst in the lower pole the right kidney. No acute abdominal or pelvic abnormality. <Electronically signed by Marco Penny > 08/06/20 [id number]
== END ==
LOC: M RAD 15:23
PROVIDERS: ATTEND Physician Assistant
DX: K76.0 Fatty (change of) liver, not elsewhere classified (principal); N28.1 Cyst of kidney, acquired; Z97.8 Presence of other specified devices; R10.13 Epigastric pain; R74.8 Abnormal levels of other serum enzymes; R10.811 Right upper quadrant abdominal tenderness
CPT/HCPCS: 74177; Q9963; Q9967

== ENCOUNTER → 2020-08-13 | Outpatient (CLI) | payer BC, OTHER ==
[~2020-08-13] MED LIST changes: -GASTROGRAFIN SOLUTION 30ML (Q9963) As Ordered ONE; -ISOVUE-370 76% 100ML VIAL As Ordered ONE
--- NOTE | 2020-08-13 08:25 | REP ---
INDICATION: EPIGASTRIC PAIN COMPARISON: None. TECHNIQUE: Real time carl scale ultrasound examination using curved array transducer. FINDINGS: Liver demonstrates mild fatty infiltration with areas of focal fatty sparing. No significant focal hepatic lesion or abnormality identified. Pancreas is normal in appearance and echotexture. The gallbladder is normal and without gallstones, wall thickening, or pericholecystic fluid. No biliary ductal dilatation is appreciated and the common bile duct measures 3.4 mm diameter. Right kidney is normal in reniform shape without hydronephrosis and measures 12.2 x 5.9 x 4.6 cm and includes 1.3 cm septated midpole cyst. No ascites in the visualized right upper quadrant. Visualized portions of the abdominal aorta appear normal. IMPRESSION: 1. Hepatosteatosis. 2. 1.3 cm septated right renal cyst likely benign and confirmed by recent CT dated 08/06/2020. <Electronically signed by Sonu Garay > 08/13/20 [id number]
== END ==
LOC: M RAD 06:51
PROVIDERS: ATTEND Physician Assistant
DX: K76.0 Fatty (change of) liver, not elsewhere classified (principal); N28.1 Cyst of kidney, acquired; R10.13 Epigastric pain

== ENCOUNTER → 2020-09-20 | Outpatient (CLI) | payer BC, OTHER ==
[~2020-09-20] MED LIST changes: +BUPR15TASR PO; +OMEP-221 PO
== END ==
LOC: M LABSMTC 10:33
PROVIDERS: ATTEND Anesthesiology
DX: Z01.812 Encounter for preprocedural laboratory examination (principal)

== ENCOUNTER 2020-09-25 08:30 | Day surgery (SDC) | payer BC, OTHER ==
[~2020-09-25] VITALS: Ht 152.4 cm; Wt 67.3 kg
[~2020-09-25 08:30] MED LIST changes: +NS 1,000 ML IV ONE
[2020-09-25] MEDS ORDERED: propofoL 200 MG/20 ML VIAL As Ordered ONE (09:03)
[2020-09-25] MEDS ORDERED: LIDOCAINE 2% 100MG/5ML SDV (FOR ANES.) As Ordered ONE (09:03)
[2020-09-25] MEDS ORDERED: fentaNYL 100 MCG/2 ML INJECTION (J3010) As Ordered ONE (09:04)
--- NOTE | 2020-09-25 09:53 | ROOR ---
Patient Name: Edwina Johnson Procedure Date: 09/25/2020 9:38 AM Date of : 1975 Age: 45 Room: [facility] Gender: Female Note Status: Finalized Procedure: Upper GI endoscopy Indications: Dysphagia Providers: DO Morgan Ortiz MD: CHRISTA Pickard Requesting Provider: Medicines: Propofol per Anesthesia Complications: No immediate complications. Procedure: Pre-Anesthesia Assessment: - Prior to the procedure, a History and Physical was performed, and patient medications and allergies were reviewed. The patient is competent. The risks and benefits of the procedure and the sedation options and risks were discussed with the patient. All questions were answered and informed consent was obtained. Patient identification and proposed procedure were verified by the physician, the nurse, the doll eye setter and the theater technician in the endoscopy suite. Mental Status Examination: alert and oriented. Airway Examination: normal oropharyngeal airway and neck mobility. Respiratory Examination: clear to auscultation. CV Examination: normal. Prophylactic Antibiotics: The patient does not require prophylactic antibiotics. Prior Anticoagulants: The patient has taken no previous anticoagulant or antiplatelet agents. ASA Grade Assessment: II - A patient with mild systemic disease. After reviewing the risks and benefits, the patient was deemed in satisfactory condition to undergo the procedure. The anesthesia plan was to use monitored anesthesia care (MAC). Immediately prior to administration of medications, the patient was re-assessed for adequacy to receive sedatives. The heart rate, respiratory rate, oxygen saturations, blood pressure, adequacy of pulmonary ventilation, and response to care were monitored throughout the procedure. The physical status of the patient was re-assessed after the procedure. The Endoscope was introduced through the mouth, and advanced to the second part of duodenum. The upper GI endoscopy was accomplished without difficulty. The patient tolerated the procedure well. Findings: The Z-line was irregular. Biopsies were taken with a cold forceps for histology. Estimated blood loss was minimal. Localized minimal inflammation characterized by target ulcerations was found in the prepyloric region of the stomach. Impression: - Z-line irregular. Biopsied. - Gastritis. Recommendation: - Patient has a contact number available for emergencies. The signs and symptoms of potential delayed complications were discussed with the patient. Return to normal activities tomorrow. Written discharge instructions were provided to the patient. - Await pathology results. - Return to my office at appointment to be scheduled. Procedure Code(s): --- Professional --- 89715, Esophagogastroduodenoscopy, flexible, transoral; with biopsy, single or multiple Diagnosis Code(s): --- Professional --- K22.8, Other specified diseases of esophagus K29.70, Gastritis, unspecified, without bleeding R13.10, Dysphagia, unspecified CPT copyright 2019 [employer]. All rights reserved. The codes documented in this report are preliminary and upon merchandise distributor review may be revised to meet current compliance requirements. Baldomero Alberto DO 09/25/2020 9:52:36 AM Electronically signed by Baldomero Alberto DO Number of Addenda: 0 Note Initiated On: 09/25/2020 9:38 AM Estimated Blood Loss: Estimated blood loss was minimal.
[2020-09-25 10:21] VITALS: BP 131/73
== END 2020-09-25 10:23 | disposition home or self-care (01) ==
LOC: M OPP 08:30
PROVIDERS: ATTEND Surgery
DX: R13.10 Dysphagia, unspecified (principal); D13.1 Benign neoplasm of stomach; K22.8 Other specified diseases of esophagus; K29.70 Gastritis, unspecified, without bleeding; K21.9 Gastro-esophageal reflux disease without esophagitis; F17.210 Nicotine dependence, cigarettes, uncomplicated; Z79.899 Other long term (current) drug therapy
CPT/HCPCS: 43239; 88305; J3010

== ENCOUNTER → 2020-10-22 | Outpatient (REF) | payer MEDICAID ==
[~2020-10-22] MED LIST changes: -NS 1,000 ML IV ONE
[2020-10-22 17:25] LABS: FREE T4 0.86 NG/DL (0.76-1.46); THYROID STIMULATING HORMONE 1.63 uIU/ML (0.358-3.740)
== END ==
LOC: M SFHCADAM 11:14
PROVIDERS: ATTEND Physician Assistant
DX: F41.0 Panic disorder [episodic paroxysmal anxiety] (principal); F41.1 Generalized anxiety disorder

== ENCOUNTER → 2022-06-30 | Outpatient (REF) | payer OTHER ==
[~2022-06-30] MED LIST changes: -OMEP-221 PO; +OMEP40CA5 PO
== END ==
LOC: M SFHCADAM 12:32
PROVIDERS: ATTEND Family Medicine
DX: R09.89 Other specified symptoms and signs involving the circulatory and respiratory systems (principal)

== ENCOUNTER → 2022-07-03 | Outpatient (REF) | payer OTHER ==
[2022-07-03 14:57] LABS: BASO % 0.5 % (0.0-1.0); EOS # 0.3 10^3/uL (0.0-0.5); EOS % 4.1 % (0.0-3.0); HEMATOCRIT 45.6 % (36.0-47.0); HEMOGLOBIN 14.5 g/dl (12.0-15.5); LYMPH % 25.5 % (24.0-44.0); MEAN CORPUSCULAR HEMOGLOBIN 31.6 pg (27.0-33.0); MEAN CORPUSCULAR HGB CONC 31.8 g/dl (32.0-36.5); MEAN CORPUSCULAR VOLUME 99.3 fl (80.0-96.0); MONO # 0.7 10^3/uL (0.0-0.8); MONO % 9.6 % (2.0-8.0); NEUTROPHILS # 4.6 10^3/uL (1.5-8.5); NEUTROPHILS % 59.9 % (36.0-66.0); PLATELET COUNT, AUTOMATED 254 10^3/uL (150-450); RED BLOOD COUNT 4.59 10^6/uL (4.00-5.40); WHITE BLOOD COUNT 7.7 10^3/uL (4.0-10.0)
[2022-07-03 15:20] LABS: ALBUMIN 4.1 G/DL (3.2-5.2); ALKALINE PHOSPHATASE 129 U/L (46-116); ALT/SGPT 38 U/L (7.0-40); AST/SGOT 25 U/L (<34); BILIRUBIN,TOTAL 0.6 MG/DL (0.3-1.2); BLOOD UREA NITROGEN 6 MG/DL (9-23); CALCIUM LEVEL 8.9 MG/DL (8.5-10.1); CARBON DIOXIDE LEVEL 25 MMOL/L (20-31); CHLORIDE LEVEL 104 MMOL/L (98-107); CREATININE FOR GFR 0.63 MG/DL (0.55-1.30); GLOMERULAR FILTRATION RATE > 60.0 (>58); GLUCOSE, FASTING 90 MG/DL (60-100); POTASSIUM SERUM 3.9 MMOL/L (3.5-5.1); RHEUMATOID FACTOR QUANT < 3.5 IU/ML (<14); SODIUM LEVEL 136 MMOL/L (136-145); TOTAL PROTEIN 7.4 G/DL (5.7-8.2)
[2022-07-03 15:36] LABS: ERYTHROCYTE SEDIMENTATION RATE 25 mm/hr (0-20)
[2022-07-04 21:06] LABS: ANA (HEP2) Negative (.)
== END ==
LOC: M SFHCADAM 10:19
PROVIDERS: ATTEND Physician Assistant
DX: L50.1 Idiopathic urticaria (principal)

== ENCOUNTER → 2023-07-29 | Outpatient (REF) | payer OTHER ==
[2023-07-29 19:24] LABS: BASO # 0.1 10^3/uL (0.0-0.2); BASO % 0.6 % (0.0-1.0); EOS # 0.2 10^3/uL (0.0-0.5); EOS % 2.3 % (0.0-3.0); HEMATOCRIT 45.1 % (36.0-47.0); HEMOGLOBIN 14.8 g/dl (12.0-15.5); LYMPH # 2.9 10^3/uL (1.5-5.0); LYMPH % 32.6 % (24.0-44.0); MEAN CORPUSCULAR HEMOGLOBIN 32.4 pg (27.0-33.0); MEAN CORPUSCULAR HGB CONC 32.8 g/dl (32.0-36.5); MEAN CORPUSCULAR VOLUME 98.7 fl (80.0-96.0); MONO # 0.6 10^3/uL (0.0-0.8); MONO % 6.8 % (2.0-8.0); NEUTROPHILS # 5.1 10^3/uL (1.5-8.5); NEUTROPHILS % 57.4 % (36.0-66.0); PLATELET COUNT, AUTOMATED 279 10^3/uL (150-450); RED BLOOD COUNT 4.57 10^6/uL (4.00-5.40); WHITE BLOOD COUNT 8.8 10^3/uL (4.0-10.0)
[2023-07-29 19:30] LABS: HEMOGLOBIN A1c 4.9 % (4.0-6.0)
[2023-07-29 19:39] LABS: C REACTIVE PROTEIN QUANTITATIV < 0.40 MG/DL (<1.0)
[2023-07-29 19:40] LABS: RHEUMATOID FACTOR QUANT < 3.5 IU/ML (<14)
[2023-07-29 19:41] LABS: ALBUMIN 4.4 G/DL (3.2-5.2); ALKALINE PHOSPHATASE 139 U/L (46-116); ALT/SGPT 41 U/L (7.0-40); AST/SGOT 25 U/L (<34); BILIRUBIN,TOTAL 0.2 MG/DL (0.3-1.2); BLOOD UREA NITROGEN 18 MG/DL (9-23); CARBON DIOXIDE LEVEL 29 MMOL/L (20-31); CHLORIDE LEVEL 101 MMOL/L (98-107); CHOLESTEROL LEVEL 219 MG/DL (<200); CHOLESTEROL RISK RATIO 4.38 (<5); CREATININE FOR GFR 1.31 MG/DL (0.55-1.30); GLOMERULAR FILTRATION RATE 46.5 (>58); GLUCOSE, FASTING 80 MG/DL (60-100); LDL CHOLESTEROL 126.8 MG/DL (<100); POTASSIUM SERUM 4.4 MMOL/L (3.5-5.1); SODIUM LEVEL 136 MMOL/L (136-145); TOTAL PROTEIN 7.3 G/DL (5.7-8.2); TRIGLYCERIDES LEVEL 211 MG/DL (<150)
[2023-07-29 19:43] LABS: ERYTHROCYTE SEDIMENTATION RATE 19 mm/hr (0-20)
[2023-07-29 19:47] LABS: TOTAL 25(OH) VITAMIN D 9.2 NG/ML (20.0-100.0)
[2023-08-01 01:06] LABS: ANA (HEP2) Negative (.); CYCLIC CITRULLINATED PEPTIDE 6 units (0-19)
== END ==
LOC: M SFHCADAM 14:26
PROVIDERS: ATTEND Physician Assistant
DX: M13.0 Polyarthritis, unspecified (principal); J45.20 Mild intermittent asthma, uncomplicated; Z13.220 Encounter for screening for lipoid disorders; Z13.1 Encounter for screening for diabetes mellitus

== ENCOUNTER → 2024-02-21 | Outpatient (REF) | payer OTHER ==
[2024-02-21 18:14] LABS: FOLATE 9.2 NG/ML (>5.4)
[2024-02-21 18:15] LABS: BLOOD UREA NITROGEN 10 MG/DL (9-23); CALCIUM LEVEL 10.1 MG/DL (8.5-10.1); CARBON DIOXIDE LEVEL 29 MMOL/L (20-31); CHLORIDE LEVEL 104 MMOL/L (98-107); CREATININE FOR GFR 0.67 MG/DL (0.55-1.30); GLOMERULAR FILTRATION RATE > 60.0 (>58); GLUCOSE, FASTING 82 MG/DL (60-100); POTASSIUM SERUM 4.5 MMOL/L (3.5-5.1); SODIUM LEVEL 136 MMOL/L (136-145)
[2024-02-21 18:16] LABS: VITAMIN B12 LEVEL 459 PG/ML (211-911)
== END ==
LOC: M SFHCADAM 13:38
PROVIDERS: ATTEND Physician Assistant
DX: R79.89 Other specified abnormal findings of blood chemistry (principal); D75.89 Other specified diseases of blood and blood-forming organs

== ENCOUNTER → 2024-02-22 | Outpatient (CLI) | payer OTHER | LOC: M WHC 16:52 | PROVIDERS: ATTEND Physician Assistant | DX: Z12.31 Encounter for screening mammogram for malignant neoplasm of breast (principal); Z53.9 Procedure and treatment not carried out, unspecified reason ==

== ENCOUNTER → 2024-02-29 | Outpatient (CLI) | payer OTHER | LOC: M WHC 17:10 | PROVIDERS: ATTEND Physician Assistant | DX: Z12.31 Encounter for screening mammogram for malignant neoplasm of breast (principal) ==

== ENCOUNTER → 2024-05-04 | Outpatient (REF) | payer OTHER ==
[2024-05-08 15:52] LABS: HPV APTIMA Not Detected (Not Detected)
== END ==
LOC: M SFHCADAM 17:38
PROVIDERS: ATTEND Physician Assistant
DX: Z12.4 Encounter for screening for malignant neoplasm of cervix (principal)
CPT/HCPCS: 87624; G0123

== ENCOUNTER 2024-05-31 09:47 | Day surgery (SDC) | payer OTHER ==
[~2024-05-31] VITALS: Ht 152.4 cm; Wt 57.3 kg
[~2024-05-31 09:47] MED LIST changes: +FLUO-365 PO; +FLUTISP; +TIRZ2.5P
[2024-05-31] MEDS ORDERED: propofoL 200 MG/20 ML VIAL As Ordered ONE (11:13)
[2024-05-31 11:47] VITALS: BP 132/69; TEMP 97.4; O2SAT 96
== END 2024-05-31 12:22 | disposition home or self-care (01) ==
LOC: M OPP 09:47
PROVIDERS: ATTEND Surgery
DX: Z12.11 Encounter for screening for malignant neoplasm of colon (principal); K64.0 First degree hemorrhoids; F17.210 Nicotine dependence, cigarettes, uncomplicated

== ENCOUNTER → 2024-07-05 | Outpatient (REF) | payer OTHER ==
[2024-07-05 14:06] LABS: APPEARANCE, URINE CLEAR (CLEAR); BACTERIA, URINE AUTO 1+ (NEGATIVE); BILIRUBIN, URINE AUTO NEGATIVE (NEGATIVE); BLOOD, URINE BLOOD NEGATIVE (NEGATIVE); COLOR, URINE YELLOW (YELLOW); GLUCOSE, URINE (UA) AUTO NEGATIVE (NEGATIVE); KETONE, URINE AUTO NEGATIVE (NEGATIVE); LEUKOCYTE ESTERASE, URINE AUTO NEGATIVE (NEGATIVE); MUCUS, URINE SMALL (NEGATIVE); NITRITE, URINE AUTO NEGATIVE (NEGATIVE); PROTEIN, URINE AUTO NEGATIVE (NEGATIVE); RBC, URINE AUTO 0 /HPF (0-3); SPECIFIC GRAVITY URINE AUTO 1.009 (1.002-1.035); SQUAMOUS EPITHELIAL CELL UR AU 1 /HPF (0-6); UROBILINOGEN, URINE AUTO 0.2 mg/dL (0.0-2.0); WBC, URINE AUTO 3 /HPF (0-3)
== END ==
LOC: EEVIPCON 12:52 → M SFHCADAM 12:52
PROVIDERS: ATTEND Physician Assistant Medical
DX: R30.0 Dysuria (principal)